=== PATIENT | male | born 1970 | race Caucasian/White ===

== ENCOUNTER 2017-04-22 22:29 | Inpatient (IN) | payer MEDICAID ==
[~2017-04-22] VITALS: Ht 185.4 cm; Wt 90.7 kg
[~2017-04-22 22:29] MED LIST: AMARYL1 MG PO; FUROSEMIDE40 MG PO; METFORMIN HCL1000 MG PO; SIMVASTATIN40 M1 PO
[2017-04-22 23:49] LABS: BASOPHIL % 0.4 % (0-2); PLATELET COUNT 227 x10^3mcL (130-400); RED CELL DISTRIBUTION WIDTH 13.7 % (11.5-14.5)
[2017-04-23] VITALS (7 sets, daily range): BP systolic 100–161; BP diastolic 62–94
[2017-04-23 00:16] LABS: CARBON DIOXIDE 22.4 mmol/L (21-32); CHLORIDE SERUM 96 mmol/L (98-107); POTASSIUM SERUM 4.6 mmol/L (3.5-5.1); SODIUM SERUM 128 mmol/L (136-145)
[2017-04-23 00:17] LABS: ALBUMIN 2.2 g/dL (3.4-5.0); ALT/SGPT 27 U/L (16-63); AST/SGOT 23 U/L (15-37); BILIRUBIN TOTAL 0.3 mg/dL (0.20-1.00); CALCIUM 8.4 mg/dL (8.5-10.1); CREATININE SERUM 1.2 mg/dL (0.7-1.3); GFR1 > 60 mL/min; TOTAL PROTEIN, SERUM 6.5 g/dL (6.4-8.2)
[2017-04-23 00:18] LABS: ALKALINE PHOSPHATASE 190 U/L (46-116)
[2017-04-23 00:20] LABS: GLUCOSE SERUM 584 mg/dL (74-106)
[2017-04-23 02:05] LABS: AMYLASE 35 U/L (25-115); LIPASE 193 IU/L (73-393); MAGNESIUM 2.2 mg/dL (1.8-2.4); PHOSPHOROUS 3.9 mg/dL (2.5-4.9)
[2017-04-23 02:06] LABS: CHOLESTEROL 293 mg/dL (<200); CHOLESTEROL/HDL RATIO 11.3; HDL CHOLESTEROL 26 mg/dL (40-60); TRIGLYCERIDES 1599 mg/dL (<150)
[2017-04-23 07:11] LABS: T3 TOTAL 0.97 ng/mL
[2017-04-23 07:57] LABS: FREE THYROXINE INDEX 2.8 ug/dL (1.4-4.5); T4(THYROXINE) 6.4 ug/dL (4.7-13.3)
[2017-04-23 08:01] LABS: FREE T4 1.01 ng/dL (0.76-1.46)
[2017-04-23 16:22] LABS: microscopic required? YES; urine erythrocyte 2+ (NEGATIVE)
[2017-04-23 16:42] LABS: AMPHETAMINE QUAL UR NONE DETECTED (NEG <=1000)
[2017-04-24 06:08] VITALS: BP 151/84
[2017-04-24 06:25] LABS: CALCIUM 8.9 mg/dL (8.5-10.1); CARBON DIOXIDE 26.4 mmol/L (21-32); CHLORIDE SERUM 104 mmol/L (98-107); GFR1 > 60 mL/min; GLUCOSE SERUM 197 mg/dL (74-106); MAGNESIUM 2.1 mg/dL (1.8-2.4); PHOSPHOROUS 5.1 mg/dL (2.5-4.9); POTASSIUM SERUM 5.2 mmol/L (3.5-5.1); SODIUM SERUM 136 mmol/L (136-145)
[2017-04-24 06:26] LABS: BASOPHIL % 0.4 % (0-2); PLATELET COUNT 213 x10^3mcL (130-400); RED CELL DISTRIBUTION WIDTH 13.6 % (11.5-14.5)
[2017-04-24 10:23] VITALS: BP 158/92
[2017-04-24] MEDS ORDERED: MOT400 PO (11:08)
[2017-04-24 13:18] VITALS: Ht 185.4 cm; Wt 90.7 kg
[2017-04-24 14:06] VITALS: BP 158/92
[2017-04-24 14:36] VITALS: BP 108/72
== END 2017-04-24 14:37 | disposition home or self-care (01) | DRG 203 ==
LOC: ED 22:29 → DU 04-23 00:34
PROVIDERS: Emergency Medicine; Family Medicine; ADMIT Family Medicine
DX: M94.0 Chondrocostal junction syndrome [Tietze] (principal); E43 Unspecified severe protein-calorie malnutrition; E87.8 Other disorders of electrolyte and fluid balance, not elsewhere classified; E87.1 Hypo-osmolality and hyponatremia; E11.65 Type 2 diabetes mellitus with hyperglycemia; M62.50 Muscle wasting and atrophy, not elsewhere classified, unspecified site; I10 Essential (primary) hypertension; D64.9 Anemia, unspecified; E78.5 Hyperlipidemia, unspecified; G89.29 Other chronic pain; M54.9 Dorsalgia, unspecified; Z96.642 Presence of left artificial hip joint; Z68.26 Body mass index [BMI] 26.0-26.9, adult; Z79.84 Long term (current) use of oral hypoglycemic drugs
CPT/HCPCS: 82962; 83880; 84439; 97116-GP; J1815; J1885; J2270; J2550; J7030; J8597; Q0092

== ENCOUNTER 2017-06-02 17:27 | Inpatient (IN) | payer MEDICAID ==
[~2017-06-02] VITALS: Ht 185.4 cm; Wt 88.5 kg
[~2017-06-02 17:27] MED LIST changes: +MOT400 PO
[2017-06-02 21:14] LABS: microscopic required? YES; urine erythrocyte 2+ (NEGATIVE)
[2017-06-02 21:57] LABS: BASOPHIL % 0.6 % (0-2); PLATELET COUNT 210 x10^3mcL (130-400); RED CELL DISTRIBUTION WIDTH 13.5 % (11.5-14.5)
[2017-06-02 22:19] LABS: ALKALINE PHOSPHATASE 157 U/L (46-116); ALT/SGPT 19 U/L (16-63); AST/SGOT 14 U/L (15-37); BILIRUBIN TOTAL 0.28 mg/dL (0.20-1.00); CALCIUM 7.9 mg/dL (8.5-10.1); CARBON DIOXIDE 26.7 mmol/L (21-32); CHLORIDE SERUM 101 mmol/L (98-107); CREATININE SERUM 1.3 mg/dL (0.7-1.3); GFR1 > 60 mL/min; POTASSIUM SERUM 3.8 mmol/L (3.5-5.1); SODIUM SERUM 133 mmol/L (136-145)
[2017-06-02 22:20] LABS: ALBUMIN 1.9 g/dL (3.4-5.0); TOTAL PROTEIN, SERUM 5.9 g/dL (6.4-8.2)
[2017-06-02 22:23] LABS: GLUCOSE SERUM 466 mg/dL (74-106)
[2017-06-02] MEDS ORDERED: GLIPIZIDE2.5 M1 PO (23:25)
[2017-06-02] MEDS ORDERED: LISINOPRIL2.5 MG PO (23:26)
[2017-06-02] MEDS ORDERED: SIMVASTATIN5 M2 PO (23:27)
[2017-06-02] MEDS ORDERED: ZOF4 PO (23:28)
[2017-06-02] MEDS ORDERED: LYRICA75 M1 PO (23:28)
[2017-06-03 00:24] LABS: MAGNESIUM 1.9 mg/dL (1.8-2.4); PHOSPHOROUS 3.4 mg/dL (2.5-4.9)
[2017-06-03 00:25] LABS: CHOLESTEROL 247 mg/dL (<200); CHOLESTEROL/HDL RATIO 10.3; HDL CHOLESTEROL 24 mg/dL (40-60); TRIGLYCERIDES 842 mg/dL (<150)
[2017-06-03 00:41] VITALS: BP 137/86
[2017-06-03 00:42] LABS: AMPHETAMINE QUAL UR NONE DETECTED (NEG <=1000)
[2017-06-03 00:46] VITALS: Ht 185.4 cm; Wt 88.5 kg
[2017-06-03 00:51] LABS: T3 TOTAL 0.96 ng/mL
[2017-06-03 00:58] LABS: FREE T4 1.09 ng/dL (0.76-1.46); FREE THYROXINE INDEX 3.5 ug/dL (1.4-4.5); T4(THYROXINE) 8.3 ug/dL (4.7-13.3)
[2017-06-03 05:37] VITALS: BP 133/72
[2017-06-03 09:32] VITALS: BP 129/78
[2017-06-03 13:57] VITALS: BP 179/99
[2017-06-03 16:42] VITALS: BP 193/104
[2017-06-03 21:04] VITALS: BP 155/91
[2017-06-04 05:59] VITALS: BP 135/80
[2017-06-04 06:23] LABS: CALCIUM 8.7 mg/dL (8.5-10.1); CARBON DIOXIDE 24.2 mmol/L (21-32); CHLORIDE SERUM 106 mmol/L (98-107); CREATININE SERUM 1.3 mg/dL (0.7-1.3); GFR1 > 60 mL/min; GLUCOSE SERUM 73 mg/dL (74-106); SODIUM SERUM 141 mmol/L (136-145)
[2017-06-04 06:27] LABS: BASOPHIL % 0.5 % (0-2); PLATELET COUNT 224 x10^3mcL (130-400); RED CELL DISTRIBUTION WIDTH 14.1 % (11.5-14.5)
[2017-06-04 09:13] VITALS: BP 146/81
[2017-06-04 10:24] VITALS: BP 146/81
[2017-06-04] MEDS ORDERED: BG FS (10:27)
[2017-06-04] MEDS ORDERED: LEVEMIR100 U/M1 SQ (10:28)
[2017-06-04] MEDS ORDERED: HUMULIN R100 U/1 M1 SC (10:29)
[2017-06-04] MEDS ORDERED: 1ST CHOICE LAN1 EACH MC (12:29)
[2017-06-04] MEDS ORDERED: INSULIN SYRING1 EA10 MC (12:36)
[2017-06-04] MEDS ORDERED: [UNRECOGNIZED DRUG - OTHER] MC (12:39)
== END 2017-06-04 13:41 | disposition home or self-care (01) | DRG 420 ==
LOC: ED 17:27 → DU 23:26
PROVIDERS: Emergency Medicine; ADMIT Student in an Organized Health Care Education/Training Program
DX: E11.65 Type 2 diabetes mellitus with hyperglycemia (principal); N17.0 Acute kidney failure with tubular necrosis; E43 Unspecified severe protein-calorie malnutrition; E87.1 Hypo-osmolality and hyponatremia; E11.51 Type 2 diabetes mellitus with diabetic peripheral angiopathy without gangrene; R74.0 Nonspecific elevation of levels of transaminase and lactic acid dehydrogenase [LDH]; E78.5 Hyperlipidemia, unspecified; D64.9 Anemia, unspecified; M54.5 Low back pain; G89.29 Other chronic pain; Z68.25 Body mass index [BMI] 25.0-25.9, adult; Z96.642 Presence of left artificial hip joint; Z79.84 Long term (current) use of oral hypoglycemic drugs; Z79.1 Long term (current) use of non-steroidal anti-inflammatories (NSAID); Z79.891 Long term (current) use of opiate analgesic
CPT/HCPCS: 82962; 84439; J1815; J1885; J2270; J2405; J7030; Q0092

== ENCOUNTER 2018-01-27 13:04 | Emergency (ER) | payer MEDICAID ==
[~2018-01-27] VITALS: Ht 185.4 cm; Wt 81.6 kg
[~2018-01-27 13:04] MED LIST changes: +1ST CHOICE LAN1 EACH MC; +BG FS; +GLIPIZIDE2.5 M1 PO; +HUMULIN R100 U/1 M1 SC; +INSULIN SYRING1 EA10 MC; +LEVEMIR100 U/M1 SQ; +LISINOPRIL2.5 MG PO; +LYRICA75 M1 PO; +SIMVASTATIN5 M2 PO; +ZOF4 PO; +[UNRECOGNIZED DRUG - OTHER] MC
[2018-01-27 13:16] VITALS: Ht 185.4 cm; Wt 81.6 kg
[2018-01-27 15:31] VITALS: BP 173/94
== END 2018-01-27 15:31 | disposition home or self-care (01) ==
LOC: ED 13:04
DX: S76.911A Strain of unspecified muscles, fascia and tendons at thigh level, right thigh, initial encounter (principal); S30.0XXA Contusion of lower back and pelvis, initial encounter; I10 Essential (primary) hypertension; E11.9 Type 2 diabetes mellitus without complications; E78.00 Pure hypercholesterolemia, unspecified; Z88.0 Allergy status to penicillin; W18.30XA Fall on same level, unspecified, initial encounter; Y93.89 Activity, other specified; Y92.89 Other specified places as the place of occurrence of the external cause; Y99.8 Other external cause status

== ENCOUNTER 2018-03-21 14:10 | Inpatient (IN) | payer MEDICAID ==
[~2018-03-21] VITALS: Ht 185.4 cm; Wt 85.7 kg
[~2018-03-21 14:10] MED LIST changes: -FUROSEMIDE40 MG PO; -LYRICA75 M1 PO; -METFORMIN HCL1000 MG PO; -SIMVASTATIN40 M1 PO; -ZOF4 PO
[2018-03-21 14:25] VITALS: Ht 185.4 cm; Wt 85.7 kg
[2018-03-21 18:27] LABS: BASOPHIL % 0.5 % (0-2); PLATELET COUNT 232 x10^3mcL (130-400); RED CELL DISTRIBUTION WIDTH 13.5 % (11.5-14.5)
[2018-03-21 18:40] LABS: BILIRUBIN TOTAL 0.21 mg/dL (0.20-1.00); CALCIUM 9.1 mg/dL (8.5-10.1); CREATININE SERUM 1.4 mg/dL (0.7-1.3); MAGNESIUM 2.1 mg/dL (1.8-2.4); PHOSPHOROUS 4.1 mg/dL (2.5-4.9); POTASSIUM SERUM 4.1 mmol/L (3.5-5.1); TOTAL PROTEIN, SERUM 6.6 g/dL (6.4-8.2)
[2018-03-21 18:44] LABS: ALBUMIN 2.3 g/dL (3.4-5.0)
[2018-03-21 18:47] LABS: UA SPECIFIC GRAVITY 1.015 (1.005-1.035); microscopic required? YES; urine erythrocyte 2+ (NEGATIVE)
[2018-03-21 19:01] LABS: AMPHETAMINE QUAL UR NONE DETECTED (See below)
[2018-03-21 20:11] LABS: AMYLASE 33 U/L (25-115); LIPASE 308 IU/L (73-393)
[2018-03-21 20:14] LABS: CHOLESTEROL 330 mg/dL (<200); CHOLESTEROL/HDL RATIO 10.3; HDL CHOLESTEROL 32 mg/dL (40-60); TRIGLYCERIDES 976 mg/dL (<150)
[2018-03-21 20:16] LABS: T3 TOTAL 0.84 ng/mL
[2018-03-21 20:25] LABS: FREE T4 0.89 ng/dL (0.76-1.46); FREE THYROXINE INDEX 1.9 ug/dL (1.4-4.5); T4(THYROXINE) 5.8 ug/dL (4.7-13.3)
[2018-03-21 21:50] VITALS: BP 172/94
[2018-03-22 05:05] VITALS: BP 140/77
[2018-03-22 07:16] LABS: BASOPHIL % 0.4 % (0-2); PLATELET COUNT 178 x10^3mcL (130-400); RED CELL DISTRIBUTION WIDTH 13.6 % (11.5-14.5)
[2018-03-22 07:35] LABS: CALCIUM 7.7 mg/dL (8.5-10.1); CARBON DIOXIDE 21.4 mmol/L (21-32); CHLORIDE SERUM 106 mmol/L (98-107); CREATININE SERUM 1.1 mg/dL (0.7-1.3); GFR1 > 60 mL/min; GLUCOSE SERUM 297 mg/dL (74-106); MAGNESIUM 2.1 mg/dL (1.8-2.4); PHOSPHOROUS 3.7 mg/dL (2.5-4.9); POTASSIUM SERUM 3.7 mmol/L (3.5-5.1); SODIUM SERUM 137 mmol/L (136-145)
[2018-03-22 08:31] VITALS: BP 138/99
[2018-03-22 12:45] VITALS: BP 150/84
[2018-03-22] MEDS ORDERED: SIMVASTATIN40 M1 PO (17:03)
[2018-03-22] MEDS ORDERED: LYRICA75 M1 (17:03)
[2018-03-22] MEDS ORDERED: LYRICA75 M1 PO (17:04)
[2018-03-22] MEDS ORDERED: METFORMIN HYDR500 M1 (17:05)
[2018-03-22] MEDS ORDERED: FUROSEMIDE40 MG PO (17:05)
[2018-03-22] MEDS ORDERED: ZOF4 PO (17:05)
[2018-03-22] MEDS ORDERED: METFORMIN HCL1000 MG PO (17:05)
[2018-03-22] MEDS ORDERED: GLIPIZIDE ER2.5 M1 (17:07)
[2018-03-22] MEDS ORDERED: LEVEMIR100 U/M1 SQ (17:08)
[2018-03-22] MEDS ORDERED: HUMULIN R100 U/1 M1 SC (17:08)
[2018-03-22] MEDS ORDERED: BG FS (17:08)
[2018-03-22] MEDS ORDERED: [UNRECOGNIZED DRUG - OTHER] MC (17:08)
== END 2018-03-22 18:08 | disposition home or self-care (01) | DRG 58 ==
LOC: ED 14:10 → DU 19:26
PROVIDERS: Emergency Medicine; Family Medicine
DX: R20.2 Paresthesia of skin (principal); N17.0 Acute kidney failure with tubular necrosis; E43 Unspecified severe protein-calorie malnutrition; E11.65 Type 2 diabetes mellitus with hyperglycemia; D68.59 Other primary thrombophilia; E87.1 Hypo-osmolality and hyponatremia; E78.5 Hyperlipidemia, unspecified; E78.1 Pure hyperglyceridemia; F32.9 Major depressive disorder, single episode, unspecified; F17.210 Nicotine dependence, cigarettes, uncomplicated; Z79.4 Long term (current) use of insulin; Z68.22 Body mass index [BMI] 22.0-22.9, adult
CPT/HCPCS: 83880; 84439; J1644; J1815; J2270; J7030; Q0092

== ENCOUNTER 2018-04-18 19:17 | Inpatient (IN) | payer MEDICAID ==
[~2018-04-18] VITALS: Ht 185.4 cm; Wt 85.3 kg
[~2018-04-18 19:17] MED LIST changes: +FUROSEMIDE40 MG PO; +GLIPIZIDE ER2.5 M1 PO; +LYRICA75 M1; +LYRICA75 M1 PO; +METFORMIN HCL1000 MG PO; +METFORMIN HYDR500 M1; +SIMVASTATIN40 M1 PO; +ZOF4 PO
[2018-04-18 19:21] VITALS: Ht 185.4 cm; Wt 85.3 kg
[2018-04-18 20:33] LABS: BASOPHIL % 0.5 % (0-2); PLATELET COUNT 256 x10^3mcL (130-400); RED CELL DISTRIBUTION WIDTH 13.6 % (11.5-14.5)
[2018-04-18 20:41] LABS: CALCIUM 8.5 mg/dL (8.5-10.1); CARBON DIOXIDE 25.5 mmol/L (21-32); CREATININE SERUM 1.6 mg/dL (0.7-1.3)
[2018-04-18 20:45] LABS: BILIRUBIN TOTAL 0.37 mg/dL (0.20-1.00); TOTAL PROTEIN, SERUM 6.2 g/dL (6.4-8.2)
[2018-04-18 20:46] LABS: ALBUMIN 2.2 g/dL (3.4-5.0)
[2018-04-18 21:54] LABS: AMYLASE 57 U/L (25-115); LIPASE 406 IU/L (73-393); MAGNESIUM 2.2 mg/dL (1.8-2.4); PHOSPHOROUS 4.1 mg/dL (2.5-4.9)
[2018-04-18 22:00] LABS: T3 TOTAL 1.1 ng/mL
[2018-04-18 22:01] LABS: CHOLESTEROL 205 mg/dL (<200); CHOLESTEROL/HDL RATIO 6.6; HDL CHOLESTEROL 31 mg/dL (40-60); TRIGLYCERIDES 524 mg/dL (<150)
[2018-04-18 22:03] LABS: FREE T4 0.99 ng/dL (0.76-1.46); FREE THYROXINE INDEX 2.9 ug/dL (1.4-4.5); T4(THYROXINE) 7.9 ug/dL (4.7-13.3)
[2018-04-18] MEDS ORDERED: LYRICA50 M1 PO (22:05)
[2018-04-18 22:36] VITALS: BP 147/85
[2018-04-19 05:44] VITALS: BP 140/68
[2018-04-19 06:17] LABS: BASOPHIL % 0.8 % (0-2); PLATELET COUNT 231 x10^3mcL (130-400); RED CELL DISTRIBUTION WIDTH 13.7 % (11.5-14.5)
[2018-04-19 06:38] LABS: CALCIUM 8.1 mg/dL (8.5-10.1); CARBON DIOXIDE 24.3 mmol/L (21-32); CREATININE SERUM 1.5 mg/dL (0.7-1.3); MAGNESIUM 2.2 mg/dL (1.8-2.4); PHOSPHOROUS 4.1 mg/dL (2.5-4.9); POTASSIUM SERUM 3.8 mmol/L (3.5-5.1)
[2018-04-19 09:08] VITALS: BP 140/83
[2018-04-19 12:11] LABS: microscopic required? YES; urine erythrocyte 2+ (NEGATIVE)
[2018-04-19 12:28] VITALS: BP 144/81
[2018-04-19 12:33] LABS: AMPHETAMINE QUAL UR NONE DETECTED (See below)
[2018-04-19 16:54] VITALS: BP 151/96
[2018-04-19 20:58] VITALS: BP 132/74
[2018-04-20 05:30] VITALS: BP 134/76
[2018-04-20 06:08] LABS: BASOPHIL % 0.5 % (0-2); PLATELET COUNT 218 x10^3mcL (130-400)
[2018-04-20 06:39] LABS: CALCIUM 8.6 mg/dL (8.5-10.1); CARBON DIOXIDE 23.9 mmol/L (21-32); CHLORIDE SERUM 106 mmol/L (98-107); CREATININE SERUM 1.3 mg/dL (0.7-1.3); GFR1 > 60 mL/min; GLUCOSE SERUM 183 mg/dL (74-106); MAGNESIUM 2.1 mg/dL (1.8-2.4); PHOSPHOROUS 4.3 mg/dL (2.5-4.9); POTASSIUM SERUM 4.1 mmol/L (3.5-5.1); SODIUM SERUM 138 mmol/L (136-145)
[2018-04-20 08:44] VITALS: BP 124/78
[2018-04-20 12:50] VITALS: BP 140/82
[2018-04-20] MEDS ORDERED: ECO81 PO (13:13)
[2018-04-20] MEDS ORDERED: LIPI20 PO (13:13)
[2018-04-20] MEDS ORDERED: NICODERM C21 MG/241 TOP (13:15)
[2018-04-20 13:51] VITALS: BP 140/82
[2018-04-23 19:29] LABS: rnp antibodies (ena) 0.2 AI (0.0-0.9); smith antibodies (ena) <0.2 AI (0.0-0.9)
[2018-04-23 19:29] LABS: SJOGRENS A/SSA AB <0.2 AI (0.0-0.9); SJOGRENS ANTIBODIES (SSB) <0.2 AI (0.0-0.9)
== END 2018-04-20 17:13 | disposition home or self-care (01) | DRG 420 ==
LOC: ED 19:17 → MU 21:22 → DU 21:22
PROVIDERS: Emergency Medicine; Family Medicine
DX: E11.65 Type 2 diabetes mellitus with hyperglycemia (principal); N17.0 Acute kidney failure with tubular necrosis; G12.21 Amyotrophic lateral sclerosis; E43 Unspecified severe protein-calorie malnutrition; D68.69 Other thrombophilia; E86.0 Dehydration; E87.1 Hypo-osmolality and hyponatremia; E78.5 Hyperlipidemia, unspecified; E78.1 Pure hyperglyceridemia; F41.8 Other specified anxiety disorders; Z96.642 Presence of left artificial hip joint; Z68.24 Body mass index [BMI] 24.0-24.9, adult; F17.210 Nicotine dependence, cigarettes, uncomplicated; Z79.84 Long term (current) use of oral hypoglycemic drugs
CPT/HCPCS: 83880; 84439; 86235; J1815; J2800; J3490; J7030; Q0092; Q0163

== ENCOUNTER 2018-04-26 10:47 | Emergency (ER) | payer MEDICAID ==
[~2018-04-26] VITALS: Ht 185.4 cm; Wt 83.9 kg
[~2018-04-26 10:47] MED LIST changes: +ECO81 PO; +LIPI20 PO; +LYRICA50 M1 PO; +NICODERM C21 MG/241 TOP
[2018-04-26 10:56] VITALS: BP 113/79; Ht 185.4 cm; Wt 83.9 kg
== END 2018-04-26 12:06 | disposition home or self-care (01) ==
LOC: ED 10:47
DX: S52.614A Nondisplaced fracture of right ulna styloid process, initial encounter for closed fracture (principal); S52.501A Unspecified fracture of the lower end of right radius, initial encounter for closed fracture; I10 Essential (primary) hypertension; E11.9 Type 2 diabetes mellitus without complications; E78.00 Pure hypercholesterolemia, unspecified; Z88.0 Allergy status to penicillin; Z90.49 Acquired absence of other specified parts of digestive tract; W18.39XA Other fall on same level, initial encounter; Y93.01 Activity, walking, marching and hiking; Y92.89 Other specified places as the place of occurrence of the external cause; Y99.8 Other external cause status
CPT/HCPCS: J1885

== ENCOUNTER 2018-04-29 08:09 | Inpatient (IN) | payer MEDICAID ==
[~2018-04-29] VITALS: Ht 185.4 cm; Wt 88.9 kg
[2018-04-29 08:22] VITALS: Ht 185.4 cm; Wt 88.9 kg
[2018-04-29 09:19] LABS: BASOPHIL % 0.5 % (0-2); PLATELET COUNT 231 x10^3mcL (130-400); RED CELL DISTRIBUTION WIDTH 13.8 % (11.5-14.5)
[2018-04-29 09:38] LABS: CALCIUM 8.2 mg/dL (8.5-10.1); CARBON DIOXIDE 25.3 mmol/L (21-32); CHLORIDE SERUM 104 mmol/L (98-107); CREATININE SERUM 1.5 mg/dL (0.7-1.3); GFR1 53 mL/min; GLUCOSE SERUM 205 mg/dL (74-106); POTASSIUM SERUM 4.6 mmol/L (3.5-5.1); SODIUM SERUM 137 mmol/L (136-145)
[2018-04-29 09:42] LABS: ALKALINE PHOSPHATASE 160 U/L (46-116); ALT/SGPT 24 U/L (16-63); AMYLASE 91 U/L (25-115); AST/SGOT 20 U/L (15-37); BILIRUBIN TOTAL 0.2 mg/dL (0.20-1.00); CHOLESTEROL 138 mg/dL (<200); LIPASE 916 IU/L (73-393)
[2018-04-29 10:02] LABS: ALBUMIN 2.3 g/dL (3.4-5.0); HDL CHOLESTEROL 32 mg/dL (40-60); TOTAL PROTEIN, SERUM 5.5 g/dL (6.4-8.2)
[2018-04-29 13:33] VITALS: BP 164/93
[2018-04-29 15:38] LABS: AMPHETAMINE QUAL UR NONE DETECTED (See below)
[2018-04-29 16:43] VITALS: BP 166/89
[2018-04-29 21:32] VITALS: BP 144/80
[2018-04-30 05:33] VITALS: BP 123/75
[2018-04-30 06:21] LABS: CALCIUM 8.7 mg/dL (8.5-10.1); CARBON DIOXIDE 23.9 mmol/L (21-32); CREATININE SERUM 1.4 mg/dL (0.7-1.3); POTASSIUM SERUM 4.6 mmol/L (3.5-5.1)
[2018-04-30 06:40] LABS: BASOPHIL % 0.7 % (0-2); PLATELET COUNT 218 x10^3mcL (130-400)
[2018-04-30 10:47] VITALS: BP 105/71
[2018-04-30 16:26] VITALS: BP 149/88
[2018-04-30 21:59] VITALS: BP 165/92
[2018-05-01 05:48] VITALS: BP 145/79
[2018-05-01 06:27] LABS: BASOPHIL % 0.5 % (0-2); PLATELET COUNT 186 x10^3mcL (130-400)
[2018-05-01 06:46] LABS: CALCIUM 8.4 mg/dL (8.5-10.1); CARBON DIOXIDE 24.5 mmol/L (21-32); CREATININE SERUM 1.7 mg/dL (0.7-1.3); POTASSIUM SERUM 4.4 mmol/L (3.5-5.1)
[2018-05-01 09:38] VITALS: BP 158/86
[2018-05-01 17:28] VITALS: BP 148/80
[2018-05-01 21:12] VITALS: BP 153/79
[2018-05-02 05:19] VITALS: BP 141/78
[2018-05-02 09:49] VITALS: BP 141/85
[2018-05-02] MEDS ORDERED: PERCOCET1 TAB PO (14:24)
[2018-05-02 14:49] VITALS: BP 141/85
[2018-05-02 18:28] VITALS: BP 132/74
== END 2018-05-02 19:47 | disposition home or self-care (01) | DRG 135 ==
LOC: ED 08:09 → MU 11:18 → DU 12:52 → MU 17:16
PROVIDERS: Emergency Medicine; Family Medicine; Internal Medicine
DX: S27.321A Contusion of lung, unilateral, initial encounter (principal); N17.0 Acute kidney failure with tubular necrosis; E43 Unspecified severe protein-calorie malnutrition; K85.90 Acute pancreatitis without necrosis or infection, unspecified; E11.22 Type 2 diabetes mellitus with diabetic chronic kidney disease; D68.69 Other thrombophilia; E11.65 Type 2 diabetes mellitus with hyperglycemia; R91.8 Other nonspecific abnormal finding of lung field; N18.3 Chronic kidney disease, stage 3 (moderate); I12.9 Hypertensive chronic kidney disease with stage 1 through stage 4 chronic kidney disease, or unspecified chronic kidney disease; D63.8 Anemia in other chronic diseases classified elsewhere; R31.9 Hematuria, unspecified; J44.9 Chronic obstructive pulmonary disease, unspecified; E78.5 Hyperlipidemia, unspecified; F32.9 Major depressive disorder, single episode, unspecified; Z68.24 Body mass index [BMI] 24.0-24.9, adult; Z86.73 Personal history of transient ischemic attack (TIA), and cerebral infarction without residual deficits; Z79.82 Long term (current) use of aspirin; Z79.84 Long term (current) use of oral hypoglycemic drugs; Z72.0 Tobacco use; W19.XXXA Unspecified fall, initial encounter; Y92.9 Unspecified place or not applicable
CPT/HCPCS: 85378; 94150; 97110-GP; 97535-GP; A4570; C9113; G0480; J1644; J1885; J2270; J7030; Q0092; Q0162; Q9967

== ENCOUNTER 2019-02-09 05:17 | Emergency (ER) | payer OTHER ==
[~2019-02-09] VITALS: Ht 185.4 cm; Wt 104.3 kg
[~2019-02-09 05:17] MED LIST changes: +PERCOCET1 TAB PO
[2019-02-09 05:33] VITALS: Ht 185.4 cm; Wt 104.3 kg
[2019-02-09 09:48] VITALS: BP 158/88
== END 2019-02-09 09:48 | disposition home or self-care (01) ==
LOC: ED 05:17
DX: S70.02XA Contusion of left hip, initial encounter (principal); I10 Essential (primary) hypertension; E11.9 Type 2 diabetes mellitus without complications; E78.00 Pure hypercholesterolemia, unspecified; F41.9 Anxiety disorder, unspecified; F32.9 Major depressive disorder, single episode, unspecified; Z98.890 Other specified postprocedural states; Z90.49 Acquired absence of other specified parts of digestive tract; Z88.0 Allergy status to penicillin; W18.30XA Fall on same level, unspecified, initial encounter; Y93.89 Activity, other specified; Y92.89 Other specified places as the place of occurrence of the external cause; Y99.8 Other external cause status
CPT/HCPCS: J2270

== ENCOUNTER 2019-03-06 | Emergency (ER) | payer OTHER ==
[~2019-03-06] VITALS: Ht 185.4 cm; Wt 104.3 kg
[2019-03-06 00:11] VITALS: Ht 185.4 cm; Wt 104.3 kg
[2019-03-06 01:55] VITALS: BP 158/87
== END 2019-03-06 01:55 | disposition home or self-care (01) ==
LOC: ED
DX: S91.202A Unspecified open wound of left great toe with damage to nail, initial encounter (principal); E11.9 Type 2 diabetes mellitus without complications; I10 Essential (primary) hypertension; E78.00 Pure hypercholesterolemia, unspecified; F41.8 Other specified anxiety disorders; Z88.0 Allergy status to penicillin; Z98.890 Other specified postprocedural states; Z90.49 Acquired absence of other specified parts of digestive tract; W22.8XXA Striking against or struck by other objects, initial encounter; Y93.89 Activity, other specified; Y92.89 Other specified places as the place of occurrence of the external cause; Y99.8 Other external cause status
CPT/HCPCS: J2001

== ENCOUNTER 2019-04-22 19:10 | Emergency (ER) | payer OTHER ==
[~2019-04-22] VITALS: Ht 175.3 cm; Wt 97.5 kg
[2019-04-22 19:19] VITALS: Ht 175.3 cm; Wt 97.5 kg
[2019-04-22 20:15] LABS: PLATELET COUNT 223 x10^3mcL (130-400)
[2019-04-22 20:19] LABS: BASOPHIL % 0 % (0-2); CALCIUM 9.2 mg/dL (8.5-10.1); CARBON DIOXIDE 20.1 mmol/L (21-32); CREATININE SERUM 2.3 mg/dL (0.7-1.3); POTASSIUM SERUM 4.3 mmol/L (3.5-5.1); RED CELL DISTRIBUTION WIDTH 14.7 % (11.5-14.5)
[2019-04-22 20:25] LABS: BILIRUBIN TOTAL 0.46 mg/dL (0.20-1.00); TOTAL PROTEIN, SERUM 7.2 g/dL (6.4-8.2)
[2019-04-22 20:27] LABS: ALBUMIN 2.4 g/dL (3.4-5.0)
[2019-04-23 00:17] VITALS: BP 125/86
== END 2019-04-23 00:50 | disposition short-term general hospital (02) ==
LOC: ED 19:10
PROVIDERS: Emergency Medicine
DX: K57.32 Diverticulitis of large intestine without perforation or abscess without bleeding (principal); I10 Essential (primary) hypertension; E11.9 Type 2 diabetes mellitus without complications; E78.00 Pure hypercholesterolemia, unspecified; F41.9 Anxiety disorder, unspecified; F32.9 Major depressive disorder, single episode, unspecified; R11.10 Vomiting, unspecified; Z90.49 Acquired absence of other specified parts of digestive tract; Z98.890 Other specified postprocedural states; Z88.0 Allergy status to penicillin
CPT/HCPCS: 82962; J0360; J2270; J2405; J2765; J3010; J3490; J7030

== ENCOUNTER 2019-11-14 05:18 | Inpatient (IN) | payer SELFPAY ==
[~2019-11-14] VITALS: Ht 185.4 cm; Wt 85.7 kg
[2019-11-14 05:27] VITALS: Ht 185.4 cm; Wt 85.7 kg
[2019-11-14 07:01] LABS: BASOPHIL % 0.1 % (0-2); PLATELET COUNT 245 x10^3mcL (130-400); RED CELL DISTRIBUTION WIDTH 14.3 % (11.5-14.5)
[2019-11-14 07:03] LABS: CALCIUM 9.7 mg/dL (8.5-10.1); CARBON DIOXIDE 22.9 mmol/L (21-32); CREATININE SERUM 2.6 mg/dL (0.7-1.3); POTASSIUM SERUM 4.2 mmol/L (3.5-5.1)
[2019-11-14 07:08] LABS: BILIRUBIN TOTAL 0.34 mg/dL (0.20-1.00); TOTAL PROTEIN, SERUM 8.1 g/dL (6.4-8.2)
[2019-11-14 09:22] LABS: CHOLESTEROL/HDL RATIO 6.1
[2019-11-14 10:19] VITALS: BP 176/91
[2019-11-14 11:21] VITALS: BP 141/73
[2019-11-14 12:34] LABS: microscopic required? YES; urine erythrocyte 1+ (NEGATIVE)
[2019-11-14 15:43] VITALS: BP 136/70
[2019-11-14 17:44] LABS: AMPHETAMINE QUAL UR NONE DETECTED (See below)
[2019-11-14 20:56] VITALS: BP 114/62
[2019-11-15 05:52] VITALS: BP 136/68
[2019-11-15 06:32] LABS: BASOPHIL % 0.4 % (0-2); PLATELET COUNT 180 x10^3mcL (130-400); RED CELL DISTRIBUTION WIDTH 14.3 % (11.5-14.5)
[2019-11-15 06:56] LABS: CALCIUM 7.9 mg/dL (8.5-10.1); CARBON DIOXIDE 19.5 mmol/L (21-32); CREATININE SERUM 2.2 mg/dL (0.7-1.3); POTASSIUM SERUM 4.2 mmol/L (3.5-5.1)
[2019-11-15 07:06] LABS: T3 TOTAL 1.45 ng/mL
[2019-11-15 07:11] LABS: FREE T4 1.16 ng/dL (0.76-1.46); FREE THYROXINE INDEX 2.2 ug/dL (1.4-4.5); T4(THYROXINE) 5.7 ug/dL (4.7-13.3)
[2019-11-15 08:06] VITALS: BP 117/54
[2019-11-15 12:12] VITALS: BP 138/68
== END 2019-11-15 17:33 | disposition left against medical advice (07) | DRG 391 ==
LOC: ED 05:18 → MU 08:14
PROVIDERS: Emergency Medicine; Internal Medicine Gastroenterology; ADMIT Family Medicine
DX: K52.9 Noninfective gastroenteritis and colitis, unspecified (principal); N17.0 Acute kidney failure with tubular necrosis; F41.9 Anxiety disorder, unspecified; F32.9 Major depressive disorder, single episode, unspecified; E86.0 Dehydration; E11.649 Type 2 diabetes mellitus with hypoglycemia without coma; M54.9 Dorsalgia, unspecified; K59.00 Constipation, unspecified; E78.00 Pure hypercholesterolemia, unspecified; E11.21 Type 2 diabetes mellitus with diabetic nephropathy; E11.40 Type 2 diabetes mellitus with diabetic neuropathy, unspecified; G89.4 Chronic pain syndrome; Z53.29 Procedure and treatment not carried out because of patient's decision for other reasons; Z90.49 Acquired absence of other specified parts of digestive tract; Z79.82 Long term (current) use of aspirin; Z88.0 Allergy status to penicillin; Z79.899 Other long term (current) drug therapy
CPT/HCPCS: 82962; 84439; 87046; 87046-59; 87804; C9113; G0378; J1885; J2405; J3490; J7030; J8597; Q0092

== ENCOUNTER 2019-11-24 17:46 | Emergency (ER) | payer SELFPAY ==
[~2019-11-24] VITALS: Ht 185.4 cm; Wt 89.4 kg
[2019-11-24 18:01] VITALS: Ht 185.4 cm; Wt 89.4 kg
[2019-11-24 18:53] LABS: BASOPHIL % 0.2 % (0-2); PLATELET COUNT 282 x10^3mcL (130-400); RED CELL DISTRIBUTION WIDTH 14.4 % (11.5-14.5)
[2019-11-24 19:03] LABS: CALCIUM 9.1 mg/dL (8.5-10.1); CARBON DIOXIDE 21.2 mmol/L (21-32); CREATININE SERUM 1.8 mg/dL (0.7-1.3); POTASSIUM SERUM 4.3 mmol/L (3.5-5.1)
[2019-11-24 19:15] LABS: BILIRUBIN TOTAL 0.51 mg/dL (0.20-1.00); TOTAL PROTEIN, SERUM 7.5 g/dL (6.4-8.2)
[2019-11-24 19:17] LABS: ALBUMIN 2.8 g/dL (3.4-5.0)
[2019-11-24 19:20] LABS: microscopic required? YES; urine erythrocyte 1+ (NEGATIVE)
[2019-11-24 19:43] LABS: AMPHETAMINE QUAL UR NONE DETECTED (See below)
[2019-11-24 22:19] VITALS: BP 193/107
== END 2019-11-24 22:19 | disposition home or self-care (01) ==
LOC: ED 17:46
PROVIDERS: Emergency Medicine
DX: E86.0 Dehydration (principal); R11.2 Nausea with vomiting, unspecified; R10.10 Upper abdominal pain, unspecified; F12.90 Cannabis use, unspecified, uncomplicated; E11.9 Type 2 diabetes mellitus without complications; N28.9 Disorder of kidney and ureter, unspecified; F17.210 Nicotine dependence, cigarettes, uncomplicated; I10 Essential (primary) hypertension; E78.00 Pure hypercholesterolemia, unspecified; Z90.49 Acquired absence of other specified parts of digestive tract; Z88.0 Allergy status to penicillin
CPT/HCPCS: C9113; J1630; J2270; J2405; J7030

== ENCOUNTER 2020-01-08 15:57 | Inpatient (IN) | payer MEDICAID, SELFPAY ==
[~2020-01-08] VITALS: Ht 182.9 cm; Wt 81.2 kg
[2020-01-08 16:15] VITALS: Ht 182.9 cm; Wt 81.2 kg
[2020-01-08 16:30] LABS: BASOPHIL % 0.3 % (0-2); PLATELET COUNT 245 x10^3mcL (130-400); RED CELL DISTRIBUTION WIDTH 14.1 % (11.5-14.5)
[2020-01-08 16:42] LABS: CALCIUM 8.8 mg/dL (8.5-10.1); CARBON DIOXIDE 20.6 mmol/L (21-32); CREATININE SERUM 2.3 mg/dL (0.7-1.3)
[2020-01-08 16:46] LABS: BILIRUBIN TOTAL 0.65 mg/dL (0.20-1.00); TOTAL PROTEIN, SERUM 6.5 g/dL (6.4-8.2)
[2020-01-08 16:47] LABS: ALBUMIN 2.5 g/dL (3.4-5.0)
[2020-01-08 18:41] LABS: FREE T4 1.2 ng/dL (0.76-1.46); FREE THYROXINE INDEX 2.9 ug/dL (1.4-4.5); T4(THYROXINE) 8.3 ug/dL (4.7-13.3)
[2020-01-08 18:43] LABS: T3 TOTAL 1.08 ng/mL
[2020-01-08 18:56] LABS: MAGNESIUM 2.6 mg/dL (1.8-2.4); PHOSPHOROUS 3.9 mg/dL (2.5-4.9)
[2020-01-08 19:05] LABS: CHOLESTEROL/HDL RATIO 6.1
[2020-01-08 19:24] VITALS: BP 175/87
[2020-01-08 21:16] VITALS: BP 173/97
[2020-01-08 23:21] VITALS: BP 139/73
[2020-01-09 00:06] LABS: microscopic required? YES; urine erythrocyte 1+ (NEGATIVE)
[2020-01-09 00:25] LABS: AMPHETAMINE QUAL UR NONE DETECTED (See below)
[2020-01-09 05:54] VITALS: BP 196/106
[2020-01-09 06:47] LABS: BASOPHIL % 0.2 % (0-2); PLATELET COUNT 233 x10^3mcL (130-400); RED CELL DISTRIBUTION WIDTH 14.3 % (11.5-14.5)
[2020-01-09 07:00] VITALS: BP 175/96
[2020-01-09 07:03] LABS: CALCIUM 8.8 mg/dL (8.5-10.1); CARBON DIOXIDE 21.2 mmol/L (21-32); MAGNESIUM 2.6 mg/dL (1.8-2.4); PHOSPHOROUS 3.7 mg/dL (2.5-4.9); POTASSIUM SERUM 3.5 mmol/L (3.5-5.1)
[2020-01-09 08:05] VITALS: BP 155/96
[2020-01-09 11:12] VITALS: BP 194/107
[2020-01-09 16:40] VITALS: BP 144/72
[2020-01-09 22:17] VITALS: BP 154/80
[2020-01-10 06:35] VITALS: BP 112/63
[2020-01-10 07:19] LABS: BASOPHIL % 0.4 % (0-2); PLATELET COUNT 154 x10^3mcL (130-400); RED CELL DISTRIBUTION WIDTH 13.9 % (11.5-14.5)
[2020-01-10 07:49] LABS: CALCIUM 8.4 mg/dL (8.5-10.1); CREATININE SERUM 2.1 mg/dL (0.7-1.3); POTASSIUM SERUM 3.4 mmol/L (3.5-5.1)
[2020-01-10] MEDS ORDERED: COR6 PO (08:40)
[2020-01-10] MEDS ORDERED: NOR10 PO (08:41)
[2020-01-10] MEDS ORDERED: APR25 PO (08:41)
[2020-01-10] MEDS ORDERED: GLIPIZIDE XL5 M2 PO (08:42)
[2020-01-10 09:22] VITALS: BP 130/64
[2020-01-10 09:28] VITALS: BP 130/64
[2020-01-10 13:56] VITALS: BP 98/49
[2020-01-10 16:04] VITALS: BP 138/67
[2020-01-10 20:06] VITALS: BP 140/68
[2020-01-11 05:34] VITALS: BP 120/58
[2020-01-11 07:03] LABS: BASOPHIL % 0.5 % (0-2); PLATELET COUNT 167 x10^3mcL (130-400)
[2020-01-11 07:19] LABS: CALCIUM 8.4 mg/dL (8.5-10.1); CARBON DIOXIDE 19.9 mmol/L (21-32); CREATININE SERUM 2.2 mg/dL (0.7-1.3)
[2020-01-11 07:52] VITALS: BP 157/74
[2020-01-11 08:28] VITALS: BP 157/74
[2020-01-11] MEDS ORDERED: ZOF4 PO (08:33)
== END 2020-01-11 12:00 | disposition home or self-care (01) | DRG 282 ==
LOC: ED 15:57 → DU 17:43
PROVIDERS: Emergency Medicine; Internal Medicine; Internal Medicine Nephrology; ADMIT Internal Medicine
DX: K85.90 Acute pancreatitis without necrosis or infection, unspecified (principal); N17.0 Acute kidney failure with tubular necrosis; E11.65 Type 2 diabetes mellitus with hyperglycemia; E44.0 Moderate protein-calorie malnutrition; E83.41 Hypermagnesemia; F19.10 Other psychoactive substance abuse, uncomplicated; E78.5 Hyperlipidemia, unspecified; F32.9 Major depressive disorder, single episode, unspecified; F41.9 Anxiety disorder, unspecified; E78.00 Pure hypercholesterolemia, unspecified; E11.40 Type 2 diabetes mellitus with diabetic neuropathy, unspecified; Z96.642 Presence of left artificial hip joint; N18.3 Chronic kidney disease, stage 3 (moderate); E11.319 Type 2 diabetes mellitus with unspecified diabetic retinopathy without macular edema; E87.2 Acidosis; E11.22 Type 2 diabetes mellitus with diabetic chronic kidney disease; F17.210 Nicotine dependence, cigarettes, uncomplicated; E88.09 Other disorders of plasma-protein metabolism, not elsewhere classified; Z90.49 Acquired absence of other specified parts of digestive tract; Z88.0 Allergy status to penicillin; Z79.899 Other long term (current) drug therapy; Z68.24 Body mass index [BMI] 24.0-24.9, adult
CPT/HCPCS: 82962; 83880; 84439; C9113; G0378; J0360; J1200; J1644; J1885; J2270; J2405; J2765; J7030; Q0092; Q0162

== ENCOUNTER 2020-02-22 14:26 | Inpatient (IN) | payer SELFPAY ==
[~2020-02-22] VITALS: Ht 185.4 cm; Wt 84.0 kg
[~2020-02-22 14:26] MED LIST changes: +APR25 PO; +COR6 PO; +GLIPIZIDE XL5 M2 PO; +NOR10 PO
[2020-02-22 15:13] LABS: BASOPHIL % 0.1 % (0-2); PLATELET COUNT 302 x10^3mcL (130-400); RED CELL DISTRIBUTION WIDTH 14.2 % (11.5-14.5)
[2020-02-22 15:16] LABS: CALCIUM 8.8 mg/dL (8.5-10.1); CARBON DIOXIDE 19.5 mmol/L (21-32); CREATININE SERUM 2.4 mg/dL (0.7-1.3); POTASSIUM SERUM 5.2 mmol/L (3.5-5.1)
[2020-02-22 15:21] VITALS: Ht 185.4 cm; Wt 84.0 kg
[2020-02-22 15:21] LABS: ALBUMIN 2.6 g/dL (3.4-5.0); BILIRUBIN TOTAL 0.43 mg/dL (0.20-1.00); TOTAL PROTEIN, SERUM 6.9 g/dL (6.4-8.2)
--- NOTE | 2020-02-22 16:08 | NUR ---
PT ARRIVED BIBA C/O GENERALIZED ABDOMINAL PAIN, 02/17, CRAMPING, CONSTANT, NAUSEA, VOMITING X 2 DAYS, CONSTIPATION X 5 DAYS, DENIES ANY THER SYMPTOMS, PT PLACED IN BED 14, AAOX4, NON-VERBAL, ANSWERS QUESTIONS WITH MOVING HEAD YES OR NO OR POINTING, PT ABLE TO SPEAK, CHOOSING NOT TO SPEAK AT TIMES, REPOSITIONED FOR COMFORT, PROVIDED WARM BLANKETS, ON CM & PULSE OX, SAFETY PREAUTIONS IN PLACE, PT STATED THAT HE HAS A HISTORY OF COLITIS AND DM, NO ACUTE DISTRESS NOTED AT THIS TIME, PT WATCHING TV, SAFETY PRECAUTIONS IN PLACE, CALL LIGHT WITHIN REACH, WILL CONTINUE TO MONITOR.
--- NOTE | 2020-02-22 18:22 | NUR ---
URINAL AT BEDSIDE, INSTRUCTED PT TO PROVIDE SAMPLE WHEN POSSIBLE
--- NOTE | 2020-02-22 18:32 | NUR ---
PT LAYING IN BED, APPEARS TO BE RESTING EYES CLOSED, AROUSABLE TO TOUCH, NO ACUTE DISTRESS NOTED, PROVIDED WARM BLANKET, SAFETY PRECAUTIONS IN PLACE, CALL LIGHT WITHIN REACH, WILL MONITOR.
--- NOTE | 2020-02-22 18:42 | NUR ---
REPOSITIONED PT IN HIGH FOWLERS POSITION, PT WAS ABLE TO BEND KNEES AND HELPED, SAFETY PRECAUTIONS IN PLACE, CALL LIGHT WITHIN REACH
--- NOTE | 2020-02-22 19:25 | NUR ---
RECIEVED REPORT FROM BONITA GARCÍA FROM ER. AWAITING FOR PT TO ARRIVE TO UNIT.
--- NOTE | 2020-02-22 19:25 | NUR ---
REPORT GIVEN TO EDYTA COLD ROLL CATCHER
--- NOTE | 2020-02-22 19:25 | NUR ---
REPORT GIVEN TO PHILIP PROCESS DESIGNER
--- NOTE | 2020-02-22 19:32 | NUR ---
PT TRANSFERED TO [facility]IA [facility] BY SEGUNDO WRIGHT AT THIS TIME.
--- NOTE | 2020-02-22 19:36 | NUR ---
RECEIVED PT BY FIORELLA FROM ED ACCOMPANIED BY RN. PT AAOX4 AND [place]IZ[place] SPEAKING. PT DENIES YEH/DIZZINESS. PT ABLE TO MAKE NEEDS KNOWN AND FOLLOW COMMANDS. PT IS MED-SURG AND DENIES CP/PRESSURE. PT RADIAL PULSES ARE MODERATE AND PEDAL PULSES WEAK. PT HAS EDEMA NOTED TO BILATERAL FEET. PT LUNG SOUNDS CTA ON RA WITH E/U BREATHING. PT DENIES SOB OR RESP DISTRESS. PT ABD SOFT/ROUND WITH ACTIVE BS X4. PT C/O N/V/C AND DENIES DIARRHEA. PT VOIDS FREELY VIA URINAL. PT IV TO RAC PATENT AND INTACT. ALL NEEDS MET AT THIS TIME. CALL LIGHT WITHIN REACH. BED IN LOWEST POSITION. SIDE RAILS X2 UP. WILL CONTINUE TO MONITOR.
[2020-02-22 20:23] VITALS: BP 151/79
--- NOTE | 2020-02-22 22:00 | NUR ---
PT C/O PAIN TO IV SITE. IV NO LONGER PATENT. NEW IV INSERTION TO RH 22G. GOOD BLOOD RETURN, FLUSHED 10CC. RESUMED LR AT THIS TIME AT 150ML/HR. NO S/S OF REDNESS, PAIN, OR SWELLING NOTED. WILL CONTINUE TO MONITOR.
--- NOTE | 2020-02-23 00:25 | NUR ---
PT RESTING COMFORTABLY WITH EYES CLOSED, EASILY AROUSABLE. PT BREATHING E/U ON RA. NO ACUTE DISTRESS NOTED. ALL NEEDS MET AT THIS TIME. CALL LIGHT WITHIN REACH. BED IN LOWEST POSITION. SIDE RAILS X2 UP. WILL CONTINUE TO MONITOR.
--- NOTE | 2020-02-23 02:24 | NUR ---
PT RESTING COMFORTABLY WITH EYES CLOSED, EASILY AROUSABLE. NO ACUTE DISTRESS NOTED. PT BREATHING E/U ON RA. LR INFUSING WELL AT 150ML/HR. WILL CONTINUE TO MONITOR.
--- NOTE | 2020-02-23 04:18 | NUR ---
PT RESTING COMFORTABLY WITH EYES CLOSED, EASILY AROUSABLE. PT BREATHING E/U ON RA. NO ACUTE DISTRESS NOTED. WILL CONTINUE TO MONITOR.
--- NOTE | 2020-02-23 05:28 | NUR ---
PT HAD A LARGE FORMED BM IN BSC. PER PT, I FEEL A LOT BETTER. WILL CONTINUE TO MONITOR.
[2020-02-23 06:05] VITALS: BP 165/80
--- NOTE | 2020-02-23 06:22 | NUR ---
PT RBS 93. NO INSULIN COVERAGE NEEDED AT THIS TIME PER RISS. PT C/O BS IS TOO LOW AND HE IS FEELING SHAKY. MADE DR. HENRY AWARE. PER DR. HENRY, PT CAN HAVE APPLE JUICE NOW AND TO BE RE-EVALUATED LATER. WILL CARRY OUT ORDERS AND WILL CONTINUE TO MONITOR.
--- NOTE | 2020-02-23 06:34 | NUR ---
PT RESTED COMFORTABLY WITH EYES CLOSED DURING THE NIGHT, EASILY AROUSABLE. NO ACUTE DISTRESS NOTED. ALL NEEDS MET. ALL QUESTIONS AND CONCERNS ADDRESSED. COMFORT AND SAFETY MEASURES MAINTAINED. PT COMPLIED WITH NURSING CARE DURING THE NIGHT. WILL ENDORSE TO DAY SHIFT NURSE.
[2020-02-23 06:53] VITALS: BP 143/68
[2020-02-23 07:23] LABS: BASOPHIL % 0.5 % (0-2); PLATELET COUNT 230 x10^3mcL (130-400)
--- NOTE | 2020-02-23 07:28 | NUR ---
ENDORSED CARE TO CHRIST GARCÍA. ALL QUESTIONS AND CONCERNS ANSWERED.
--- NOTE | 2020-02-23 07:30 | NUR ---
PT IS SLEEPING THIS TIME, RECEIVED PT FROM HEALTH CENTER MANAGER. STABLE. DENIES ANY PAIN.
[2020-02-23 07:35] LABS: BILIRUBIN TOTAL 0.4 mg/dL (0.20-1.00); CARBON DIOXIDE 20.4 mmol/L (21-32); MAGNESIUM 2.2 mg/dL (1.8-2.4); PHOSPHOROUS 3.7 mg/dL (2.5-4.9); POTASSIUM SERUM 4.3 mmol/L (3.5-5.1)
[2020-02-23 07:36] LABS: ALBUMIN 1.9 g/dL (3.4-5.0); TOTAL PROTEIN, SERUM 5.4 g/dL (6.4-8.2)
--- NOTE | 2020-02-23 08:00 | NUR ---
PT RESTING IN BED. ASSESSED AND DOCUMENTED. DENIES ANY PAIN THIS TIME. STABLE. SAFTEY PRECAUTIONS ARE IN PLACE. WILL MONITOR.
[2020-02-23 08:20] VITALS: BP 149/76
[2020-02-23 10:00] LABS: microscopic required? YES; urine erythrocyte TRACE (NEGATIVE)
[2020-02-23 10:02] LABS: AMPHETAMINE QUAL UR NONE DETECTED (See below)
--- NOTE | 2020-02-23 10:34 | NUR ---
PT C/O ABD PAIN,12/18. ADMINISTERED NORCO PO ORDERED. WILL MONITOR.
[2020-02-23] MEDS ORDERED: APAP/HYDROCODON1 T13 PO (10:53)
--- NOTE | 2020-02-23 11:34 | NUR ---
PT SAID HE DOESNOT FEEL PAIN ANYMORE. PT WENT FOR CT ABD AND CAME BACK. STABLE. NO DISTRESS NOTED.
--- NOTE | 2020-02-23 11:35 | NUR ---
PT C/O NAUSEA AND ZOFRAN GIVEN AT 1034, REASSESSED NOW AND PT SAID NO MORE NAUSEA. STABLE.
[2020-02-23] MEDS ORDERED: ZOF4 PO (12:43)
[2020-02-23] MEDS ORDERED: TRAZODONE150 M1 PO (12:47)
--- NOTE | 2020-02-23 13:00 | NUR ---
AWARE ABOUT CT ABD RESULT. SHE SAID PT DISCHARGE AND CAN GO HOME. INFORMED HER ABOUT PT SAID HE FEEL COLD INSIDE HIS BODY ALL THE TIME. TEMP IS NORMAL, V/S STABLE. SPEAK WITH PT ABOUT THAT. PT IS STABLE. DENIES PAIN THIS TIME.
[2020-02-23 13:42] VITALS: BP 130/68
--- NOTE | 2020-02-23 13:53 | NUR ---
Discount pharmacy card and list to low cost medical clinics given to patient.
--- NOTE | 2020-02-23 14:51 | NUR ---
PT C/O NAUSEA, ZOFRAN 4MG IV GIVEN ORDERED. NO VOMITING.
--- NOTE | 2020-02-23 15:21 | NUR ---
PT IS STABLE, NO MORE NAUSEA THIS TIME.
--- NOTE | 2020-02-23 16:27 | NUR ---
PT IS STABLE. NO MORE NAUSEA. PT IS WAITING FOR HIS RIDE FOR DC HOME.
[2020-02-23 16:47] VITALS: BP 130/68
--- NOTE | 2020-02-23 16:50 | NUR ---
DISCHARGE INSTRUCTIONS GIVEN. SENT PRESCRIPTIONS TO PT'S PHARMACY. PB SIGNED AND SENT WITH PT. IV REMOVED AND DRESSING APPLIED. PT DENIES ANY PAIN. STABLE. NO NAUSEA. FAMILY CAME TO BEEF LUGGER PT, WAITING IN THE LOBBY. SYNTHETIC STAPLE EXTRUDER WHEELED PT DOWN TO LOBBY. DC HOME.
== END 2020-02-23 17:05 | disposition home or self-care (01) | DRG 438 ==
LOC: ED 14:26 → MU 16:09
PROVIDERS: Emergency Medicine; ADMIT Internal Medicine; ATTEND Internal Medicine
DX: K85.90 Acute pancreatitis without necrosis or infection, unspecified (principal); N17.0 Acute kidney failure with tubular necrosis; E44.0 Moderate protein-calorie malnutrition; E78.00 Pure hypercholesterolemia, unspecified; F32.9 Major depressive disorder, single episode, unspecified; F41.9 Anxiety disorder, unspecified; E11.40 Type 2 diabetes mellitus with diabetic neuropathy, unspecified; E78.5 Hyperlipidemia, unspecified; F17.210 Nicotine dependence, cigarettes, uncomplicated; E87.5 Hyperkalemia; N18.3 Chronic kidney disease, stage 3 (moderate); E11.22 Type 2 diabetes mellitus with diabetic chronic kidney disease; I12.9 Hypertensive chronic kidney disease with stage 1 through stage 4 chronic kidney disease, or unspecified chronic kidney disease; E86.0 Dehydration; E11.65 Type 2 diabetes mellitus with hyperglycemia; T40.7X5A Adverse effect of cannabis (derivatives), initial encounter; F12.20 Cannabis dependence, uncomplicated; Z90.49 Acquired absence of other specified parts of digestive tract; Z88.0 Allergy status to penicillin; Z79.899 Other long term (current) drug therapy; Z79.84 Long term (current) use of oral hypoglycemic drugs; Z68.27 Body mass index [BMI] 27.0-27.9, adult; Y92.89 Other specified places as the place of occurrence of the external cause
CPT/HCPCS: 82962; G0378; J1630; J2270; J2405; J7030; J7120; Q0092

== ENCOUNTER 2020-02-28 18:33 | Emergency (ER) | payer SELFPAY ==
[~2020-02-28] VITALS: Ht 180.3 cm; Wt 81.6 kg
[~2020-02-28 18:33] MED LIST changes: +APAP/HYDROCODON1 T13 PO; +TRAZODONE150 M1 PO
[2020-02-28 19:08] VITALS: Ht 180.3 cm; Wt 81.6 kg
[2020-02-28 19:41] LABS: BASOPHIL % 0.3 % (0-2); PLATELET COUNT 325 x10^3mcL (130-400)
[2020-02-28 19:43] LABS: RED CELL DISTRIBUTION WIDTH 14.7 % (11.5-14.5)
[2020-02-28 19:52] LABS: CALCIUM 8.7 mg/dL (8.5-10.1); CARBON DIOXIDE 20.8 mmol/L (21-32); CREATININE SERUM 1.9 mg/dL (0.7-1.3); POTASSIUM SERUM 5.3 mmol/L (3.5-5.1)
[2020-02-28 19:56] LABS: BILIRUBIN TOTAL 0.4 mg/dL (0.20-1.00); TOTAL PROTEIN, SERUM 6.9 g/dL (6.4-8.2)
[2020-02-28 20:00] LABS: ALBUMIN 2.5 g/dL (3.4-5.0)
[2020-02-29 07:21] VITALS: BP 162/81
== END 2020-02-29 07:21 | disposition home or self-care (01) ==
LOC: ED 18:33
PROVIDERS: Emergency Medicine
DX: K29.70 Gastritis, unspecified, without bleeding (principal); F12.988 Cannabis use, unspecified with other cannabis-induced disorder; E11.43 Type 2 diabetes mellitus with diabetic autonomic (poly)neuropathy; K31.84 Gastroparesis; N28.9 Disorder of kidney and ureter, unspecified; I10 Essential (primary) hypertension; E78.00 Pure hypercholesterolemia, unspecified; F17.210 Nicotine dependence, cigarettes, uncomplicated; Z90.49 Acquired absence of other specified parts of digestive tract; Z98.890 Other specified postprocedural states; Z88.0 Allergy status to penicillin
CPT/HCPCS: 83880; J1630; J2405; J3490; J7030; Q0092

== ENCOUNTER 2020-05-08 12:02 | Emergency (ER) | payer MEDICAID | END 2020-05-08 12:11 | disposition left against medical advice (07) | LOC: ED 12:02 | DX: Z53.21 Procedure and treatment not carried out due to patient leaving prior to being seen by health care provider (principal) ==

== ENCOUNTER 2020-07-02 13:18 | Emergency (ER) | payer MEDICAID ==
[~2020-07-02] VITALS: Ht 182.9 cm; Wt 81.2 kg
[2020-07-02 13:20] VITALS: Ht 182.9 cm; Wt 81.2 kg
--- NOTE | 2020-07-02 15:36 | NUR ---
PT REFUSED, DR THOMPSON AWARE
[2020-07-02 16:14] LABS: CALCIUM 8.6 mg/dL (8.5-10.1); CREATININE SERUM 1.8 mg/dL (0.7-1.3); POTASSIUM SERUM 4.3 mmol/L (3.5-5.1)
[2020-07-02 16:27] LABS: T4(THYROXINE) 8.6 ug/dL (4.7-13.3); TOTAL PROTEIN, SERUM 6.5 g/dL (6.4-8.2)
[2020-07-02 16:29] LABS: ALBUMIN 2.8 g/dL (3.4-5.0)
[2020-07-02 16:41] LABS: CK-MB 1.8 ng/mL (0-3.6)
[2020-07-02 16:46] LABS: AMPHETAMINE QUAL UR NONE DETECTED (See below)
[2020-07-02 16:47] LABS: BASOPHIL % 0.4 % (0-2); PLATELET COUNT 190 x10^3mcL (130-400)
[2020-07-02 16:49] LABS: RED CELL DISTRIBUTION WIDTH 15.9 % (11.5-14.5)
[2020-07-02 17:09] VITALS: BP 150/99
== END 2020-07-02 19:02 | disposition left against medical advice (07) ==
LOC: ED 13:18
PROVIDERS: Emergency Medicine
DX: R77.8 Other specified abnormalities of plasma proteins (principal); R06.02 Shortness of breath; E11.9 Type 2 diabetes mellitus without complications; I10 Essential (primary) hypertension; E78.00 Pure hypercholesterolemia, unspecified; K31.84 Gastroparesis; Z90.49 Acquired absence of other specified parts of digestive tract; Z98.890 Other specified postprocedural states; Z88.0 Allergy status to penicillin
CPT/HCPCS: 83880

== ENCOUNTER 2020-07-14 10:34 | Inpatient (IN) | payer OTHER, SELFPAY ==
[~2020-07-14] VITALS: Ht 185.4 cm; Wt 72.7 kg
[2020-07-14 11:25] LABS: BASOPHIL % 0.4 % (0-2); PLATELET COUNT 250 x10^3mcL (130-400)
[2020-07-14 11:29] LABS: RED CELL DISTRIBUTION WIDTH 15.9 % (11.5-14.5)
[2020-07-14 11:51] LABS: CALCIUM 9.2 mg/dL (8.5-10.1); CARBON DIOXIDE 23.1 mmol/L (21-32); CREATININE SERUM 1.7 mg/dL (0.7-1.3); POTASSIUM SERUM 5.2 mmol/L (3.5-5.1)
[2020-07-14 12:03] LABS: BILIRUBIN TOTAL 0.79 mg/dL (0.20-1.00); TOTAL PROTEIN, SERUM 7.1 g/dL (6.4-8.2)
[2020-07-14 12:06] LABS: ALBUMIN 2.9 g/dL (3.4-5.0)
[2020-07-14 14:50] VITALS: BP 138/87
[2020-07-14 14:58] VITALS: Ht 185.4 cm; Wt 72.7 kg
[2020-07-14 22:26] VITALS: BP 152/91
[2020-07-15 05:17] LABS: PLATELET COUNT 207 x10^3mcL (130-400)
[2020-07-15 05:22] LABS: CALCIUM 8.6 mg/dL (8.5-10.1); CARBON DIOXIDE 26.1 mmol/L (21-32); CREATININE SERUM 1.9 mg/dL (0.7-1.3); POTASSIUM SERUM 4.7 mmol/L (3.5-5.1)
[2020-07-15 05:24] LABS: RED CELL DISTRIBUTION WIDTH 15.7 % (11.5-14.5)
[2020-07-15 05:25] LABS: MONOCYTE 5 % (0-7); SEGMENTED NEUTROPHILS 70 % (37-75); rbc morphology (normal/abnorm) NORMAL (NORMAL)
[2020-07-15 06:23] VITALS: BP 142/77
[2020-07-15 08:26] VITALS: BP 124/68
[2020-07-15 12:24] VITALS: BP 121/67
[2020-07-15 16:37] VITALS: BP 125/68
[2020-07-15 20:34] VITALS: BP 124/72
[2020-07-16 05:18] VITALS: BP 147/85
[2020-07-16 06:52] LABS: CALCIUM 8.7 mg/dL (8.5-10.1); CARBON DIOXIDE 25.3 mmol/L (21-32); CREATININE SERUM 1.9 mg/dL (0.7-1.3); POTASSIUM SERUM 4.7 mmol/L (3.5-5.1)
[2020-07-16 06:57] LABS: PLATELET COUNT 203 x10^3mcL (130-400)
[2020-07-16 09:44] VITALS: BP 145/83
[2020-07-16 10:32] LABS: MONOCYTE 5 % (0-7); SEGMENTED NEUTROPHILS 75 % (37-75); rbc morphology (normal/abnorm) NORMAL (NORMAL)
[2020-07-16 15:22] VITALS: BP 140/81
== END 2020-07-16 15:32 | disposition left against medical advice (07) | DRG 282 ==
LOC: ED 10:34 → DU 13:38
PROVIDERS: Emergency Medicine; ADMIT Hospitalist; ATTEND Hospitalist
DX: K85.90 Acute pancreatitis without necrosis or infection, unspecified (principal); I50.41 Acute combined systolic (congestive) and diastolic (congestive) heart failure; I11.0 Hypertensive heart disease with heart failure; E11.9 Type 2 diabetes mellitus without complications; E78.00 Pure hypercholesterolemia, unspecified; F32.9 Major depressive disorder, single episode, unspecified; F41.9 Anxiety disorder, unspecified; E78.5 Hyperlipidemia, unspecified; Z20.828 Contact with and (suspected) exposure to other viral communicable diseases; Z88.0 Allergy status to penicillin; Z87.81 Personal history of (healed) traumatic fracture; Z90.49 Acquired absence of other specified parts of digestive tract; Z79.4 Long term (current) use of insulin; Z79.899 Other long term (current) drug therapy; Z79.82 Long term (current) use of aspirin; Z79.84 Long term (current) use of oral hypoglycemic drugs
CPT/HCPCS: 36600; 83880; 85378; 87804; 97110-GP; 97530-GP; G0378; J0456; J1200; J1644; J1940; J1956; J2270; J2405; J2765; J3010; J7030; J7050; Q0092

== ENCOUNTER 2020-08-14 06:53 | Inpatient (IN) | payer OTHER ==
[~2020-08-14] VITALS: Ht 185.4 cm; Wt 84.4 kg
[2020-08-14 06:55] VITALS: Ht 185.4 cm; Wt 84.4 kg
--- NOTE | 2020-08-14 07:06 | NUR ---
EKG IN PROGRESS. DR. LIU AT BEDSIDE.
--- NOTE | 2020-08-14 07:23 | NUR ---
REPORT GIVEN TO RICKY SPARKS TO ASSUME CARE OF PT.
--- NOTE | 2020-08-14 07:39 | NUR ---
PT TO CT VIA [facility]. SPOKE TO [facility] NURSE WHO ADVISE ME PT BEGAN TO "LOOK DIFFERENT" AFTER SHE MEDICATED HIM WITH CYCLOBENZAPRINE THIS AM FOR HIS "JERKING" MOVEMENTS AND SPASMS THAT HE HAS BEEN HAVING SINCE 08/11/2020. PT HAS RECEIVED THIS MEDICATION BEFORE WITH NO SIDE EFFECT OR ADVERSE EFFECT. PT USUALLY ABLE TO VERBALIZED HIS NEEDS HOWEVER THIS MORNING THE NURSE STATED PT WAS MUMBLING AND HAD INCOMPREHENSIBLE SPEECH. NO OBVIOUS FACIAL DROOP OR ASSYMETRY. PT USUALLY ABLE TO MOVE UPPER EXTREMITIES HOWEVER THIS AM PT MORE WEAKER THAN USUAL. PT IS NON AMBULATORY PER [facility] NURSE. WILL CONTINUE TO MONITOR. AWAITING FURTHER ORDERS
--- NOTE | 2020-08-14 07:53 | NUR ---
PT BACK FROM CT WITH NO INCIDENT
[2020-08-14 08:27] LABS: BASOPHIL % 0.3 % (0-2); PLATELET COUNT 199 x10^3mcL (130-400)
[2020-08-14 08:30] LABS: CALCIUM 9.1 mg/dL (8.5-10.1); CARBON DIOXIDE 26.2 mmol/L (21-32); CREATININE SERUM 1.8 mg/dL (0.7-1.3); POTASSIUM SERUM 4.3 mmol/L (3.5-5.1)
[2020-08-14 08:35] LABS: BILIRUBIN TOTAL 0.4 mg/dL (0.20-1.00)
[2020-08-14 08:38] LABS: ALBUMIN 2.4 g/dL (3.4-5.0); TOTAL PROTEIN, SERUM 6.1 g/dL (6.4-8.2)
--- NOTE | 2020-08-14 08:44 | NUR ---
PT LYING IN BED AWAKE NO OBVIOUS DISTRESS VSS AT THIS TIME. NO FURTHER ORDERS AT THIS TIME.
[2020-08-14 08:45] LABS: RED CELL DISTRIBUTION WIDTH 14.9 % (11.5-14.5)
[2020-08-14 08:53] LABS: microscopic required? YES; urine erythrocyte TRACE (NEGATIVE)
--- NOTE | 2020-08-14 09:00 | NUR ---
SEIZURE PADS PLACED TO BILATERAL SIDE RAILS FOR SAFETY.
--- NOTE | 2020-08-14 09:41 | NUR ---
PT IS AWAKE ALERT UNABLE TO ASSESS ORIENTATION, PT FOLLOWS SOME SIMPLE COMMANDS, IS NOW MOVING BUE, AND ABLE TO RAISE BLE, PT NOTED TO HAVE A DRY COUGH NO SOB NOTED, PT ATTEMPTING TO SIT UP ON HIS OWN ABLE TO GRASP SIDERAILS AND PULL SELF UP, PT ASSISTED TO POSITION OF COMFORT.
--- NOTE | 2020-08-14 09:47 | NUR ---
DR LIU AT BEDSIDE NOTED PT TO BE MOVING IN BED WITH GARBLED SPEECH, PT GRASPING ON TO SIDERAILS LIFTING HIMSELF UP, PT ABLE TO FOLLOW SOME SIMPLE COMMANDS. IS MOVING BLE SUCH BENDING KNEES, SIDERAILS UP X 2 FOR SAFETY PT ON FULL CM NO OBVIOUS DISTRESS NOTED. AWAITING FURTHER MD ORDERS.
--- NOTE | 2020-08-14 09:59 | NUR ---
PER DR LIU, PT TO HAVE TELE NEURO CONSULT, TELE MONITOR AT BEDSIDE AT THIS TIME
--- NOTE | 2020-08-14 10:16 | NUR ---
TELE NEURO CONSULT COMPLETED. PER NEUROLOGIST NO TPA RECOMMENDED AT THIS TIME, HOWEVER WILL SEND REPORT.
--- NOTE | 2020-08-14 10:38 | NUR ---
PT MEDICATED WITH ATIVAN PER MD ORDERS SEE EMAR.
--- NOTE | 2020-08-14 10:53 | NUR ---
AFTER MEDICATING PT NOW SLEEPING NO DISTRESS. ON FULL CM VSS NO LONGER TWITCHING OR JERKING AT THIS TIME. AROUSABLE WILL CONTINUE TO MONITOR
--- NOTE | 2020-08-14 11:33 | NUR ---
PT TO CT VIA [facility] AT THIS TIME. NO DISTRESS. NO JERKING SINCE MEDICATING WITH ATIVAN. SPOKE TO [facility] TO CONFIRM IF PT IS TAKING METFORMIN, FATOU ENRIQUEZ NURSE CONFIRMED PT IS NOT CURRENTLY TAKING METFORMIN. ROBINA FROM CT ADVISED
--- NOTE | 2020-08-14 11:55 | NUR ---
PT BACK FROM CT WITH NO INCIDENT PLACED BACK ON FULL CM NO DISTRESS WILL CONTINUE TO MONITOR.
--- NOTE | 2020-08-14 12:05 | NUR ---
PT MOVING IN BED NOTED TO TALK STATING "MY LEGS" HOWEVER WHEN ASKED IF HE HAS PAIN HE NODDED NO. NO DISTRESS ON FULL CM VSS WILL MONITOR
--- NOTE | 2020-08-14 13:00 | NUR ---
PT LYING IN BED NO DISTRESS ON FULL CM VSS CALM AND COOPERATIVE PT RESTING WILL CONTINUE TO MONITOR
--- NOTE | 2020-08-14 13:07 | NUR ---
REPORT GIVEN TO ANDRE GARCÍA RESUMING CARE OF PT AT THIS TIME
--- NOTE | 2020-08-14 13:18 | NUR ---
ANITA RECEIVED FROM BRIDGER GARCÍA
--- NOTE | 2020-08-14 14:13 | NUR ---
PT IN BED RESTING, EASY TO AROUSE. PT IS ORIENTED TO HIS NAME, BUT IS UNABLE TO ANSWER HIS BIRTHDAY, AND THE CURRENT YEAR. REMOVED EXTRA SHEETS, BLANKETS, AND REPOSITIONED TO COMFORT. 800ML URINE OUTPUT NOTED IN WHITTAKER BAG.
--- NOTE | 2020-08-14 14:57 | NUR ---
PT IN GURNEY, RESTING. PT REQUESTED WATER, HELPED PT HAVE WATER WITH STRAW. ADMINISTERED LASIX 40MG IVP, PT TOLERATED WELL. PT ASKED "WHY AM I SHAKING" AND STATED THAT HE NORMALLY DOES NOT SHAKE WHEN ASKED IF THE SHAKING IS HIS BASELINE. MD IS AWARE OF SHAKING. PT WAS MEDICATED WITH ATIVAN FOR SHAKING PRIOR TO MY ASSUMPTION OF CARE OF PT. PT ON FULL MONITORS, RESP E/U, NAD NOTED, SIDE RAILS X2 WITH SEIZURE PADS AND BED IN LOWEST POSITION FOR SAFETY. PT ALERTNESS AND ORIENTATION INCREASING WITH PROGRESSING INTERACTION.
--- NOTE | 2020-08-14 15:44 | NUR ---
PT IN BED RESTING C/O 7/10 PAIN IN HIS "BUTT". A NONBLANCHABLE PRESSURE ULCER IS OBSERVED IN THE PT'S COCCYX REGION. PT NAD NOTED, RESP E/U, CALL LIGHT IN REACH
--- NOTE | 2020-08-14 16:43 | NUR ---
CALLED NANI WEINSTEINCAREER REPRESENTATIVE FOR SCD'S (ADMIT HOLD)
[2020-08-14] MEDS ORDERED: NEURONTIN100 MG PO (16:44)
[2020-08-14] MEDS ORDERED: LOKELMA10 GM PO (16:45)
[2020-08-14] MEDS ORDERED: TRAZODONE50 M1 PO (16:45)
[2020-08-14] MEDS ORDERED: ATA25 PO ×2 (16:46→16:54)
[2020-08-14] MEDS ORDERED: SYNTHROID0.05 MG PO (16:47)
[2020-08-14] MEDS ORDERED: LASIX20 MG PO (16:49)
[2020-08-14] MEDS ORDERED: ENSURE GLUCERN237 ML PO (17:00)
[2020-08-14] MEDS ORDERED: DIALYVITE 800 W1 TA2 PO (17:05)
[2020-08-14] MEDS ORDERED: ISOSORBIDE30 M1 PO (17:05)
[2020-08-14] MEDS ORDERED: COREG3.125 MG PO (17:06)
[2020-08-14] MEDS ORDERED: HYDRALAZINE HCL10 MG PO (17:07)
[2020-08-14] MEDS ORDERED: BENADRYL ALLERG25 MG PO (17:08)
[2020-08-14] MEDS ORDERED: ACETAMINOPHEN-H1 TA1 PO (17:09)
[2020-08-14] MEDS ORDERED: NYSTATIN15 GM PO (17:09)
[2020-08-14] MEDS ORDERED: TAMSULOSIN HCL0.4 MG PO (17:10)
[2020-08-14] MEDS ORDERED: OLANZAPINE10 MG PO (17:12)
[2020-08-14] MEDS ORDERED: LIPITOR20 MG PO (17:12)
[2020-08-14] MEDS ORDERED: REGLAN10 M1 PO (17:13)
[2020-08-14] MEDS ORDERED: ZOF4 PO (17:14)
[2020-08-14] MEDS ORDERED: FEVER REDUCER650 MG RC (17:16)
[2020-08-14] MEDS ORDERED: COLACE100 MG PO (17:17)
[2020-08-14] MEDS ORDERED: FEVER REDUCER650 MG PO (17:17)
[2020-08-14] MEDS ORDERED: ENULOSE10 GM/151 PO (17:18)
[2020-08-14] MEDS ORDERED: IPRATROPIUM BROM3 M2 HHN (18:04)
[2020-08-14] MEDS ORDERED: MAGNESIUM IV (18:12)
[2020-08-14] MEDS ORDERED: POTASSIUM CHLO20 ME4 PO (18:14)
[2020-08-14] MEDS ORDERED: [UNRECOGNIZED DRUG - CODE] IV (18:14)
[2020-08-14] MEDS ORDERED: SODIUM PHO IV (18:15)
[2020-08-14] MEDS ORDERED: NOVI SQ (18:17)
--- NOTE | 2020-08-14 18:19 | NUR ---
REPORT GIVEN TO EDDIE GARCÍA TO ASSUME CARE OF PT
--- NOTE | 2020-08-14 19:01 | NUR ---
RECIEVED PATIENT FROM ER NURSE. PATIENT IS ALERT AND ORIENTED X 1 ONLY. PATIENT ORIENTED TO SELF ONLY. PATIENT IS VERBAL AND COMMUNICATING WELL. SPEAKS [place]. WHITTAKER IN PLACE DRAINING YELLOW URINE TO GRAVITY. IV SITE TO THE RIGHT HAND. FALL PROTOCOLS IN PLACE.
--- NOTE | 2020-08-14 19:15 | NUR ---
RECEIVED PT FROM ER, PT ADMIT FOR ALOC. PT IS A/O X4, VERBAL RESPONSIVE. LUNG SOUND DIM SALLY BASE, DENY ANY SOB. PT IS ON 4L/ MIN O2 VIA NC. PO2 98%, PT IS ON TELE 8, ST WITH ELEVATED T WAVE. DENY ANY CHEST PAIN. BOWEL SOUND PRESENT ALL 4 QUADRNTS, NO DISTENTION, NO TENDER. PEDAL PULSE PRESENT BOTH FEET, NO EDEMA, WHITTAKER CATH IN PLACE, PT'S BOTH ARM ARE SHAKING. BUT NO TREMOR NOTED. PT DENY ANY SEIZURE ACTIVITY BEFORE. ALL 4 EXTREMITIES ARE EQUAL STREIGHT. IV AT RIGHT WRIST, NO LEAKING, NO INFILTRATON. ALL ADLS ASSIST, ALL NEED MET, CALL LIGHT IN REACH, WILL CONTINUE TO MONITOR.
[2020-08-14 19:46] VITALS: BP 148/91
--- NOTE | 2020-08-14 20:00 | NUR ---
patient in bed. no s/s of distress. denies pain at this time. patient is calm and assited with repositioning and pillow support. will continue to monitor.
[2020-08-14 20:05] VITALS: BP 145/82
--- NOTE | 2020-08-15 | NUR ---
PATIENT IN BED. NPO. WHITTAKER IN PLACE. NO DISTRESS, CALM. IIV FLUIDS MAINTAINED ORDERED. MOVED CLOSE TO NURSES STATION. WILL CONTINUE TO MONITOR
[2020-08-15 04:33] VITALS: BP 127/70
[2020-08-15 07:36] LABS: BASOPHIL % 0.4 % (0-2); PLATELET COUNT 194 x10^3mcL (130-400)
--- NOTE | 2020-08-15 07:57 | NUR ---
RECIEVED PT FROM PREVIOUS SHIFT NURSE. PT RESTING IN BED, EASILY AROUSABLE. RR EVEN AND UNLABORED ON 2LNC, CHEST RISING EQUALLY. TELE #8 NSR W/ ELEVATED T WAVES. IV NOTED TO RW WNL/PATENT, D5NS RUNNING AT 40ML/HR. WHITTAKER NOTED DRAINING YELLOW URINE TO GRAVITY. PT BEDBOUND, W/ LEFT SIDED WEAKNESS, WILL TURN Q2/PRN. NO SIGNS OF ACUTE CHANGE OR DISTRESS NOTED. BED IN LOWEST POSITION, SIDE RAILS UP X2, AND CALL LIGHT WITHIN REACH. WILL CONTINUE TO MONITOR.
[2020-08-15 08:11] VITALS: BP 107/63
[2020-08-15 08:11] LABS: BILIRUBIN TOTAL 0.58 mg/dL (0.20-1.00); CALCIUM 8.5 mg/dL (8.5-10.1); CREATININE SERUM 1.8 mg/dL (0.7-1.3); POTASSIUM SERUM 4.2 mmol/L (3.5-5.1)
[2020-08-15 08:37] LABS: ALBUMIN 2.3 g/dL (3.4-5.0); TOTAL PROTEIN, SERUM 5.9 g/dL (6.4-8.2)
--- NOTE | 2020-08-15 11:36 | NUR ---
DR. BELL MADE AWARE OF (+) GRAM COCCI IN CLUSTER IN BLOOD CULTURES. PER DR. BELL, HE WILL PUT IN ABX. WILL AWAIT FOR FURTHER ORDERS.
[2020-08-15 11:59] VITALS: BP 92/54
--- NOTE | 2020-08-15 16:45 | NUR ---
DR. ARGUELLES AT BEDSIDE.
[2020-08-15 17:02] VITALS: BP 138/73; BP 140/75
--- NOTE | 2020-08-15 18:41 | NUR ---
ALL NEEDS MET THROUGH OUT THE SHIFT. NO SIGNS OF ACUTE CHANGE OR DISTRESS NOTED. WILL ENDORSE CARE TO ONCOMING SHIFT NURSE, AND WILL CONTINUE TO MONITOR.
--- NOTE | 2020-08-15 20:00 | NUR ---
PATIENT IN BED. NO DISTRESS. NEEDS MET AND ASSISTED WITH ADL. BED IN LOWEST POSITION, CALL LIGHT WITHIN REACH. WILL CONTINUE TO MONITOR.
[2020-08-15 20:39] VITALS: BP 132/53
--- NOTE | 2020-08-16 | NUR ---
PATIENT ASLEEP IN BED AND CALM. NO S/S OF DISTRESS. WHITTAKER DRAINING APPROPRIATELY. BED IN LOWEST POSITION, CALL LIGHT WITHIN REACH, WILL CONTINUE TO MONITOR.
[2020-08-16 05:56] VITALS: BP 116/66
[2020-08-16 07:54] LABS: BASOPHIL % 0.5 % (0-2); PLATELET COUNT 188 x10^3mcL (130-400)
--- NOTE | 2020-08-16 08:00 | NUR ---
RECEIVED PATIENT SLEEPING NO DISTRESS NOTED. T8 NSR W/ HR 81 NOTED. IV TO RW WRAPPED AND INTACT NOTED. WHITTAKER TO GRAVITY DRAIN AND SECURED. CALL LIGHT WITHIN REACH.
[2020-08-16 08:07] LABS: BILIRUBIN TOTAL 0.6 mg/dL (0.20-1.00); CALCIUM 8.7 mg/dL (8.5-10.1); CARBON DIOXIDE 25.7 mmol/L (21-32); CREATININE SERUM 2.5 mg/dL (0.7-1.3); POTASSIUM SERUM 4.4 mmol/L (3.5-5.1)
[2020-08-16 08:15] VITALS: BP 90/45
[2020-08-16 08:19] LABS: ALBUMIN 2.4 g/dL (3.4-5.0); TOTAL PROTEIN, SERUM 6.1 g/dL (6.4-8.2)
[2020-08-16 08:30] LABS: RED CELL DISTRIBUTION WIDTH 15.2 % (11.5-14.5)
[2020-08-16 09:45] VITALS: BP 108/56
--- NOTE | 2020-08-16 09:45 | NUR ---
PATIENT STILL SLEEPING AROUSABLE, NO DISTRESS NOTED. VERBALIZE NO PAIN. PATIENT TOOK ALL PO MEDS, HELD BP MED FOR LOW BP. STUDENT NURSE ASSIST W/ BREAKFAST TRAY. CALL LIGHT WITHIN REACH.
--- NOTE | 2020-08-16 12:38 | NUR ---
PT SEEN PATIENT AT THIS TIME, PER DARIAN PATIENT CAN'T WALK, JUST STAND BUT UNSTEADY.
--- NOTE | 2020-08-16 12:45 | NUR ---
RECEIVED REPORT FROM NURSE. PT SITTING UP IN BED AND EATING, NO ACUTE DISTRESS NOTED. AAOX4. ON TELE 8 NSR. PULSES +, - EDEMA. FINE CRACKLES NOTED PT ON 2L NC O2 SAT 98%. NO SOB NOTED AT THIS TIME. HAS BLE WEAKNESS. WHITTAKER IN PLACE, DRAINING CLEAR YELLOW URINE. SKIN INTACT AT THIS TIME. BLANCHABLE ERYTHEMA NOTED TO COCCYX. PT DID HAVE ABD PAIN AT THIS TIME, WILL MEDICATE PER EMAR. IV ON R WRIST PATENT AND FLUSHING AT THIS TIME. CALL LIGHT WITHIN REACH. BED IN LOWEST POSITION.
--- NOTE | 2020-08-16 13:10 | NUR ---
GAVE REPORT TO MUSHTAQ GARCÍA TO RESUME CARE.
--- NOTE | 2020-08-16 14:44 | NUR ---
PT ASKED FOR BELONGINGS FROM WHEN HE CAME IN, CALLED ER AND PJ ANSWERED, STATED THAT HE DOESN'T HAVE THE BELONGINGS FOR PT. WILL CALL AND FOLLOW UP WITH SECURITY.
--- NOTE | 2020-08-16 14:46 | NUR ---
CALLED SECURITY TWICE, NO ONE ANSWERED AT THIS TIME. WILL TRY AND FOLLOW UP AGAIN.
[2020-08-16 16:25] VITALS: BP 105/66
--- NOTE | 2020-08-16 17:13 | NUR ---
RECEIVED CALL FROM LAB ABOUT PT TROUGH LEVEL 19.6. WILL CALL PHARMACY IF VANCO SHOULD STILL BE GIVEN.
--- NOTE | 2020-08-16 17:19 | NUR ---
SPOKE WITH PHARMACY ABOUT PTS TROUGH, PHARMACIST STATED TO HOLD VANCO @1700. SHE WILL CHANGE THE DOSE.
--- NOTE | 2020-08-16 19:40 | NUR ---
ENDORSED PT TO DESIZING PAD OPERATOR RN. PT LAYING IN BED, NO ACUTE DISTRESS NOTED. AWAKE AND ALERT. ON 3L NC, NO SOB NOTED AT THIS TIME. PT WILL BE TRANSFERRED TO [facility] AT 2100 PER CM TODAY. ENDORSED TO DESIZING PAD OPERATOR RN. NO CP AND PRESSURE NOTED. CALL LIGHT WITHIN REACH, BED IN LOWEST POSITION.
[2020-08-16 20:30] VITALS: BP 109/66
--- NOTE | 2020-08-16 20:51 | NUR ---
RECEIVED REPORT FROM OUTGOING NURSE RICKY LANDIN AT 1900.PATIENT AWAKE,ALERT AND ORIENTED .SKIN WARM AND DRY TO TOUCH.ON O2 AT 3L/MIN VIA N/C WITH O2 SAT 100%.ON NSR 85 TELE MONITOR #8. PATIENT C/O ABD. PAIN AT SCALE OF8/10 AND REQUESTED FOR MORPHINE SULFATE 4 MG IV AND GIVEN WITH GOOD RELIEF .PATIENT AWARED FOR DISCHARGE TO [facility] AND AWAITING FOR TRANSPORT AT THIS TIME. WILL CALL [facility] FOR REPORT.
[2020-08-16 21:30] VITALS: BP 109/66
== END 2020-08-16 21:57 | DRG 194 ==
LOC: ED 06:53 → DU 14:02
PROVIDERS: Emergency Medicine; ADMIT Hospitalist; ATTEND Hospitalist
DX: I11.0 Hypertensive heart disease with heart failure (principal); G93.41 Metabolic encephalopathy; K31.84 Gastroparesis; E11.43 Type 2 diabetes mellitus with diabetic autonomic (poly)neuropathy; I50.9 Heart failure, unspecified; D64.9 Anemia, unspecified; F32.9 Major depressive disorder, single episode, unspecified; F12.10 Cannabis abuse, uncomplicated; F41.9 Anxiety disorder, unspecified; Z20.828 Contact with and (suspected) exposure to other viral communicable diseases; Z88.0 Allergy status to penicillin; Z87.81 Personal history of (healed) traumatic fracture; Z79.899 Other long term (current) drug therapy; Z86.73 Personal history of transient ischemic attack (TIA), and cerebral infarction without residual deficits
CPT/HCPCS: 82962; 83880; G0378; J1940; J2060; J2185; J2270; J3370; J3490; Q9967